=== PATIENT | female | born 1950 | race Caucasian/White ===

== ENCOUNTER 2016-08-19 07:50 | Day surgery (SDC) | payer MEDICARE ==
[~2016-08-19 07:50] MED LIST: FENTANYL 250 MCG/5 ML AMP IV PRN; LACTATED RINGERS 1,000 ML IV SCH; MIDAZOLAM HCL 5 MG/5 ML VIAL IV PRN
[2016-08-19] MEDS ORDERED: LACTATED RINGERS 1,000 ML ONE (07:56)
[2016-08-19] MEDS ORDERED: IV START KIT ONE (07:56)
[2016-08-19] MEDS ORDERED: FENTANYL 250 MCG/5 ML AMP ONE (09:00)
[2016-08-19] MEDS ORDERED: MIDAZOLAM HCL 5 MG/5 ML VIAL ONE (09:00)
--- NOTE | 2016-08-23 15:09 | SURGPATH ---
[facility] [address] [place] [id number] Patient Name: SYLWIA AUGUST MR#: [id number] : 1950 Gender: F Specimen #: [id number] Collected: 08/19/2016 Received: 08/22/2016 Reported: 08/23/2016 Submitting Phys: JERAMY ROSENTHAL Copy To Phys: [facility] BRYCE MURPHY Clinical History / Pre-Operative Diagnosis: SCREENING Specimen Source / Surgical Procedure Performed: DISTAL TRANSVERSE Interpretation: COLON, DISTAL TRANSVERSE, POLYP, POLYPECTOMY: - TUBULAR ADENOMA Electronically Signed Out Ammy Stout M.D. Gross Description: The specimen is received in a formalin filled container labeled with the patient's name and "distal transverse". An irregular, polypoid red-plasencia biopsy is 1.0 x 0.5 x 0.5 cm. Bisected. Totally embedded in one cassette. Ulises Galvan Microscopic Description: Three fragments of a tubular adenoma are seen. There is appears to be a cauterized edge without adenomatous change present. No high-grade dysplasia or carcinoma seen. It is traumatized with mucin rupture. Dr. Wilfred Dos Santos has reviewed the case and concurs with the interpretation. 1: [id number] D12.3
== END 2016-08-19 10:30 | disposition home or self-care (01) ==
LOC: SDC 07:50
PROVIDERS: ATTEND Internal Medicine Gastroenterology
PROC: 0DBL8ZX Excision of Transverse Colon, Via Natural or Artificial Opening Endoscopic, Diagnostic (ICD-10-PCS; principal; 2016-08-19)
DX: Z12.11 Encounter for screening for malignant neoplasm of colon (principal); D12.3 Benign neoplasm of transverse colon; K57.30 Diverticulosis of large intestine without perforation or abscess without bleeding; E78.5 Hyperlipidemia, unspecified; E03.9 Hypothyroidism, unspecified
CPT/HCPCS: 45385; J3010; J2250; J7120